=== PATIENT | female | born 1940 | race Caucasian/White ===

== ENCOUNTER 2016-10-29 08:56 | Outpatient (CLI) | payer MEDICARE, OTHER | END 2016-10-29 08:57 | disposition home or self-care (01) | DX: T14.90 Injury, unspecified (principal) ==

== ENCOUNTER 2017-09-10 10:42 | Outpatient (CLI) | payer MEDICARE, OTHER ==
[2017-09-10] MEDS ORDERED: IOPAMIDOL-300 50 ML VIAL ONE (10:56)
[2017-09-10] MEDS ORDERED: IOPAMIDOL-300 100 ML VIAL ONE (10:56)
[2017-09-10] MEDS ORDERED: IOPAMIDOL-300 50 ML VIAL PO ONE (12:10)
[2017-09-10] MEDS ORDERED: IOPAMIDOL-300 100 ML VIAL IVP ONE (12:10)
--- NOTE | 2017-09-10 13:03 | CT Report ---
CT OF ABDOMEN AND PELVIS WITH CONTRAST: 09/10/2017 CLINICAL INDICATION: Left lower quadrant pain. COMPARISON: 01/11/2014. TECHNIQUE: Axial CT images of the abdomen and pelvis were obtained with 100 mL Isovue 300 intravenously as well as oral contrast. FINDINGS: Limited evaluation of the lung bases is unremarkable. ABDOMEN: The liver demonstrates tiny cysts, stable. No solid hepatic lesion or intrahepatic biliary dilatation is appreciated. The spleen, pancreas, kidneys and adrenal glands are unremarkable. The gallbladder is not dilated. No bowel dilatation, free gas, or free fluid is present. No abdominal adenopathy is seen. PELVIS: Sigmoid diverticulosis is present, without CT evidence of diverticulitis. The patient is status post hysterectomy. No pelvic adenopathy or free fluid is present. Osseous structures demonstrate degenerative changes. IMPRESSION: POSTOPERATIVE CHANGES OF HYSTERECTOMY. NO EVIDENT ETIOLOGY FOR PATIENT'S PAIN. DIVERTICULOSIS, WITHOUT EVIDENCE OF DIVERTICULITIS. In accordance with CT protocol optimization, one or more of the following dose reduction techniques were utilized for this exam: automated exposure control, adjustment of mA and/or KV based on patient size, or use of iterative reconstructive technique. TD: 09/10/2017 13:02
== END 2017-09-10 10:43 | disposition home or self-care (01) ==
LOC: DI 10:42
PROVIDERS: ATTEND Family Medicine
DX: R10.32 Left lower quadrant pain (principal); K57.30 Diverticulosis of large intestine without perforation or abscess without bleeding; Z90.710 Acquired absence of both cervix and uterus
CPT/HCPCS: 74177; Q9967

== ENCOUNTER 2018-11-21 13:06 | Emergency (ER) | payer MEDICARE, OTHER ==
[2018-11-21 14:09] LABS: BASOPHILS % (AUTO) 0.6 %; EOSINOPHILS # (AUTO) 0.2 10^3/uL (0.0-0.7); EOSINOPHILS % (AUTO) 2.5 %; LYMPHOCYTES # (AUTO) 2.1 10^3/uL (1.5-3.5); LYMPHOCYTES % (AUTO) 30.3 %; MEAN CORPUSCULAR HEMOGLOBIN 30.5 pg (27.0-31.0); MEAN CORPUSCULAR HGB CONC 32.1 g/dL (32.0-36.0); MEAN CORPUSCULAR VOLUME 95.1 fL (81.0-99.0); MEAN PLATELET VOLUME 11.4 fL (7.9-10.8); MONOCYTES # (AUTO) 0.5 10^3/uL (0.0-1.0); MONOCYTES % (AUTO) 6.6 %; NEUTROPHILS # (AUTO) 4.1 10^3/uL (1.5-6.6); NEUTROPHILS % (AUTO) 59.6 %; PLT - PLATELET COUNT 183 10^3/uL (130-450); RED BLOOD COUNT 4.91 10^6/uL (4.20-5.40); RED CELL DISTRIBUTION WIDTH 13.2 % (12.0-15.0); WHITE BLOOD COUNT 6.9 x10^3/uL (4.8-10.8)
[2018-11-21 14:23] LABS: ALBUMIN 4.1 g/dL (3.2-5.5); ALBUMIN/GLOBULIN RATIO 1.4 (1.0-2.2); BILIRUBIN,TOTAL 0.7 mg/dL (0.2-1.0); CALCIUM 9.5 mg/dL (8.5-10.3); CREATININE 0.8 mg/dL (0.4-1.0); TOTAL PROTEIN 7.1 g/dL (6.7-8.2)
--- NOTE | 2018-11-21 14:55 | ED Physician Documentation ---
PD HPI ABD PAIN - Stated complaint Stated Complaint: ABD CRAMPS - Chief complaint Chief Complaint: Abd Pain - History obtained from History obtained from: Patient - History of Present Illness Timing - onset: Last night Timing - duration: Days (1/2) Timing - details: Gradual onset, Still present, Waxing and waning Quality: Cramping, Aching, Pain Location: Periumbilical, Other (lower abdomen) Improved by: BM (small one this morning). No: Eating Worsened by: No: Eating Associated symptoms: No: Fever, Nausea, Vomiting, Diarrhea, Melena Similar symptoms before: Diagnosis (IBS diagnosis. Diverticula on scope but no prior diverticulitis.) Recently seen: Not recently seen Review of Systems Constitutional: reports: Fatigue. denies: Fever, Chills, Myalgias Nose: denies: Rhinorrhea / runny nose, Congestion Throat: denies: Sore throat Cardiac: denies: Chest pain / pressure Respiratory: denies: Cough GI: reports: Abdominal Pain. 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 : None HEENT: None Psych: Anxiety Musculoskeletal: Osteoporosis Derm: None - Past Surgical History General: Appendectomy, Colonoscopy /DEPUTY CHIEF COUNSEL: Hysterectomy, Mastectomy HEENT: Rhinoplasty - Present Medications Home Medications: Ambulatory Orders Medication Instructions Recorded Confirmed Aspirin Chewable [[place] 81 mg PO DAILY 02/09/13 10/27/16 Aspirin] Atenolol [Tenormin] 25 mg PO QPM 02/09/13 10/27/16 Psyllium Seed (with Sugar) 1 each PO DAILY 02/09/13 10/27/16 [Metamucil Fiber Wafer] Anastrozole 1 mg PO DAILY 03/21/13 10/27/16 Metronidazole [[place]] 45 gm TP DAILY 07/04/13 10/27/16 Acyclovir [Zovirax] 400 mg PO BID 10/17/13 10/27/16 Hydrocodone/Acetaminophen [[place] 1 each PO Q6H PRN #15 tablet 11/21/18 5-325 Tablet] Naproxen 375 mg PO BID #20 tablet 11/21/18 - Allergies Allergies/Adverse Reactions: Allergies Allergy/AdvReac Type Severity Reaction Status Date / Time lactose Allergy gi distress Verified 11/21/18 13:15 - Social History Does the pt smoke?: No Smoking Status: Never smoker Does the pt drink ETOH?: No Does the pt have substance abuse?: No - POLST Patient has POLST: Yes POLST Status: Full Code PD ED PE NORMAL - Vitals Vital signs reviewed: Yes - General General: Alert and oriented X 3, Well developed/nourished - HEENT HEENT: Moist mucous membranes, Pharynx benign - Neck Neck: Supple, no meningeal sign, No adenopathy - Cardiac Cardiac: RRR, No murmur - Respiratory Respiratory: Clear bilaterally - Abdomen Abdomen: Soft, Non distended, No organomegaly, Other (Tenderness diffusely in the lower abdomen without any focal guarding or percussion tenderness.). No: Normal bowel sounds (increased) - Female Female : Deferred - Rectal Rectal: Deferred - Back Back: No CVA TTP - Derm Derm: Normal color, Warm and dry - Extremities Extremities: No tenderness to palpate, Normal ROM s pain, No edema, No calf tenderness / cord - Neuro Neuro: Alert and oriented X 3, No motor deficit, Normal speech Results - Vitals Vitals: Vital Signs - 24 hr 11/21/18 11/21/18 11/21/18 13:12 14:58 15:47 Temperature 36.7 C 36.4 C L Heart Rate 73 71 Respiratory 18 18 Rate Blood Pressure 191/81 H 173/85 H O2 Saturation 100 100 11/21/18 11/21/18 16:48 17:35 Temperature 36.6 C 36.6 C Heart Rate 75 80 Respiratory 18 18 Rate Blood Pressure 151/81 H 166/96 H O2 Saturation 100 100 Oxygen O2 Source Room air - Labs Labs: Laboratory Tests 11/21/18 11/21/18 11/21/18 13:27 14:04 14:04 WBC 6.9 RBC 4.91 Hgb 15.0 Hct 46.7 MCV 95.1 MCH 30.5 MCHC 32.1 RDW 13.2 Plt Count 183 MPV 11.4 H Neut # (Auto) 4.1 Lymph # (Auto) 2.1 [place] # (Auto) 0.5 Eos # (Auto) 0.2 Baso # (Auto) 0.0 Absolute Nucleated RBC 0.00 Nucleated RBC % 0.0 Sodium 141 Potassium 4.2 Chloride 108 Carbon Dioxide 21 Anion Gap 12.0 BUN 15 Creatinine 0.8 Estimated GFR (MDRD) 70 L Glucose 92 Calcium 9.5 Total Bilirubin 0.7 AST 32 ALT 31 Alkaline Phosphatase 74 Total Protein 7.1 Albumin 4.1 Globulin 3.0 Albumin/Globulin Ratio 1.4 Lipase 28 Urine Color YELLOW Urine Clarity CLEAR Urine pH 7.0 Ur Specific [place] <=1.005 Urine Protein NEGATIVE Urine Glucose (UA) NEGATIVE Urine Ketones NEGATIVE Urine Occult Blood TRACE-INTA Urine Nitrite NEGATIVE Urine Bilirubin NEGATIVE Urine Urobilinogen 0.2 (NORMAL) Ur Leukocyte Esterase NEGATIVE Ur Microscopic Review NOT INDICATED Urine Culture Comments NOT INDICATED - Rads (name of study) abd/pelvic CT Radiology: Prelim report reviewed (Diverticula present without any focal diverticulitis. No acute obvious cause of the pain. Appendix appears normal. Gallbladder is normal.), See rad report PD MEDICAL DECISION MAKING - ED course Complexity details: considered differential (The patient has a normal white count and is afebrile. Her basic chemistry labs are normal as well. Her CT scan does not show any acute process to explain the pain. She has diverticula but no signs of diverticulitis. She has a history of irritable bowel. Consider the possibility of inflammatory colitis or potential stool because. We can try some anti-inflammatories and stool softeners. She had had bowel movement yesterday so has not truly constipated per se. She is given pain medicine and and fluids here in the department with improvement in her pain. Recheck of the abdomen still shows no guarding or percussion tenderness.), d/w patient Departure - Departure Disposition: 01 Home, Self Care Clinical Impression: Lower abdominal pain Condition: Stable Record reviewed to determine appropriate education?: Yes Instructions: ED Abdominal Pain Unkn Cause Follow-Up: Nick Lockett MD [Primary Care Provider] - Prescriptions: Hydrocodone/Acetaminophen [[place] 5-325 Tablet] 1 each PO Q6H PRN #15 tablet PRN Reason: Pain Naproxen 375 mg PO BID #20 tablet Comments: Your CT scan does not show an obvious acute cause of the pain. Can presume it some inflammation through the colon or possibly some diverticula. No signs of infection based on the CT scan or your blood count. Try some anti-inflammatory of naproxen with food twice daily. Add pain medicine if needed. Continue your probiotics. Add a stool softener such as docusate or Dulcolax daily for the next 3 to 4 days. This is in case of some unevenness of the stool through the colon causing local stretching of the colon. Recheck if not improved over the next 1 to 2 days and return sooner if worsening despite above medication.
[2018-11-21 15:10] LABS: BILIRUBIN,URINE NEGATIVE (NEGATIVE); GLUCOSE, URINE (UA) NEGATIVE (NEGATIVE); KETONES,URINE (UA) NEGATIVE (NEGATIVE); LEUKOCYTE ESTERASE, URINE NEGATIVE (NEGATIVE); NITRITE,URINE NEGATIVE (NEGATIVE); OCCULT BLOOD,URINE TRACE-INTA (NEGATIVE); PROTEIN,URINE NEGATIVE (NEGATIVE); UROBILINOGEN,URINE 0.2 (NORMAL) E.U./dL (NORMAL)
[2018-11-21] MEDS ORDERED: SODIUM CHLORIDE 0.9% 1,000 ML IV ONE (15:17)
[2018-11-21] MEDS ORDERED: MORPHINE 2 MG/ML CARPUJECT IVP STA (15:17)
[2018-11-21 15:21] LABS: CLARITY,URINE CLEAR (CLEAR)
[2018-11-21] MEDS ORDERED: IOVERSOL 320 100 ML VIAL IVP ONE ×2 (15:31→15:42)
--- NOTE | 2018-11-21 16:14 | CT Report ---
Reason: lower abd pain since yesterday Procedure Date: 11/21/2018 Accession Number: [id number] / [id number] Procedure: CT - Abdomen/Pelvis W CPT Code: FULL RESULT: EXAM: CT ABDOMEN AND PELVIS EXAM DATE: 11/21/2018 03:40 PM. CLINICAL HISTORY: Lower abd pain since yesterday. COMPARISONS: ABDOMEN/PELVIS W/ 09/10/2017 11:59 AM. TECHNIQUE: Routine helical CT imaging was performed through the abdomen and pelvis. IV contrast: 90 cc Optiray 320. Enteric contrast: No. Reconstructions: Coronal and sagittal. In accordance with CT protocol optimization, one or more of the following dose reduction techniques were utilized for this exam: automated exposure control, adjustment of mA and/or KV based on patient size, or use of iterative reconstructive technique. FINDINGS: Lung Bases: Unremarkable. Liver: Tiny cysts or hemangiomata. Otherwise unremarkable. Gallbladder/Bile Ducts: Unremarkable. Spleen: Normal. Pancreas: Normal. Adrenal Glands: Normal. Kidneys: Tiny cortical cyst. Retroaortic left renal vein, normal variant. Otherwise unremarkable. No stone or hydronephrosis. Peritoneal Cavity/Bowel: Moderate colonic diverticulosis. Nonspecific small bowel gas. No bowel dilation. No free fluid, free air or adenopathy. No masses or acute inflammatory process. The appendix is well visualized and normal. Pelvic Organs: Unremarkable urinary bladder. Absent uterus. Vasculature: No aneurysms or other significant abnormality. Bones: No significant abnormality. Other: None. IMPRESSION: 1. Moderate diverticulosis, but no definite diverticulitis at this time. 2. Nonspecific small bowel gas. No definite acute disease. RADIA
[2018-11-21] MEDS ORDERED: HYDROmorphone 1 MG/ML CARPUJECT IVP STA (16:51)
[2018-11-21] MEDS ORDERED: KETOROLAC 15 MG/ML VIAL IVP STA (16:51)
[2018-11-21] MEDS ORDERED: DOCUSATE SODIUM 100 MG CAPSULE PO STA (16:52)
[2018-11-21] MEDS ORDERED: DEXAMETHASONE 10 MG/ML VIAL PO STA (17:17)
[2018-11-21] MEDS ORDERED: CHERRY SYRUP 10 ML UDC PO ONE (17:17)
[2018-11-21 17:37] VITALS: BP 166/96
== END 2018-11-21 17:42 | disposition home or self-care (01) ==
LOC: ED 13:06
DX: R10.30 Lower abdominal pain, unspecified (principal); I10 Essential (primary) hypertension
CPT/HCPCS: 36415; 74177; 80053; 81003; 83690; 85025; 96361; 96374; 96375; 99283; A9270; Q9967; 81001; 87086

== ENCOUNTER 2019-07-14 07:00 | Outpatient (CLI) | payer MEDICARE, OTHER | END 2019-07-14 23:59 | disposition home or self-care (01) | LOC: LAB.R 07:00 | PROVIDERS: ATTEND Family Medicine | DX: R19.7 Diarrhea, unspecified (principal) | CPT/HCPCS: 81599; 87045; 87046; 87177; 87209; 87329; 87493 ==

== ENCOUNTER 2020-08-16 12:42 | Outpatient (CLI) | payer MEDICARE, OTHER ==
--- NOTE | 2020-08-16 16:24 | DEXA Report ---
PROCEDURE: Dexa Spine and/or Hip INDICATIONS: POST MENOPAUSAL TECHNIQUE: Dual energy x-ray absorptiometry (DXA) was performed on a [employer] System. Regions measur ed are the AP Spine, femoral neck, and if needed forearm. COMPARISON: DEXA 10/06/2016 FINDINGS: Lumbar Spine: Bone Mineral Density 1.235 g/cm/cm,T score 0.5, compared to 0.8 Left Hip: Bone Mineral Density 0.650 g/cm/cm,T score -2.8, compared to -2.4 Left Femoral Neck: Bone Mineral Density 0.617 g/cm/cm, T score -3.0, compared to -2.2 (T score greater or equal to -1.0: NORMAL) (T score from -1.1 to -2.4: OSTEOPENIA) (T score less than or equal to -2.5 to: OSTEOPOROSIS) Impression: Progression of osteopenia within the left hip as well as progression to osteoporosis in t he left femoral neck. Patients with diagnosis of osteoporosis or osteopenia should have regular bone mineral density assess ment. For those eligible for Medicare, routine testing is allowed once every 2 years. Testing frequ ency can be increased for patients who have rapidly progressing disease or for those who are receivin g medical therapy to restore bone mass. Reviewed by: Marce Jose MD on 08/16/2020 4:23 PM PDT Approved by: Marce Jose MD on 08/16/2020 4:23 PM PDT Station ID: [id number]
== END 2020-08-16 12:43 | disposition home or self-care (01) ==
LOC: DI 12:42
PROVIDERS: ATTEND Internal Medicine Hematology & Oncology
DX: M81.0 Age-related osteoporosis without current pathological fracture (principal); Z78.0 Asymptomatic menopausal state

== ENCOUNTER 2021-09-09 08:00 | Outpatient (CLI) | payer MEDICARE, OTHER ==
--- NOTE | 2021-09-09 17:21 | XRAY Report ---
PROCEDURE: Knee 2 View RT INDICATIONS: R KNEE PX TECHNIQUE: 2 views of the right knee(s) were acquired. COMPARISON: None. FINDINGS: Bones: No fractures or dislocations. No suspicious bony lesions. Chondrocalcinosis. Mild medial co mpartment joint space loss. Soft tissues: Small joint effusion. No suspicious soft tissue calcifications. IMPRESSION: Mild CPPD arthropathy. No evidence acute bony abnormality of the right knee. If clinical suspicion and/or symptoms persist, further assessment with repeat plain films or advanced imaging (e.g., CT, MRI, or bone scan) may be helpful for further assessment. Reviewed by: John Martinez MD on 09/09/2021 5:20 PM PDT Approved by: John Martinez MD on 09/09/2021 5:20 PM PDT Station ID: [id number]
== END 2021-09-09 23:59 | disposition home or self-care (01) ==
LOC: DI.N 08:00
PROVIDERS: ATTEND Nurse Practitioner
DX: M11.861 Other specified crystal arthropathies, right knee (principal)

== ENCOUNTER 2022-01-26 10:38 | Outpatient (CLI) | payer MEDICARE, OTHER ==
[2022-01-26 18:01] LABS: HCT - HEMATOCRIT 45.8 % (37.0-47.0); MEAN CORPUSCULAR HEMOGLOBIN 31.3 pg (27.0-31.0); MEAN CORPUSCULAR HGB CONC 32.8 g/dL (32.0-36.0); MEAN CORPUSCULAR VOLUME 95.6 fL (81.0-99.0); MEAN PLATELET VOLUME 12.3 fL (7.9-10.8); NEUTROPHILS # (AUTO) 4.3 10^3/uL (1.5-6.6); NEUTROPHILS % (AUTO) 64.3 %; RED BLOOD COUNT 4.79 10^6/uL (4.20-5.40); RED CELL DISTRIBUTION WIDTH 13.2 % (12.0-15.0); WHITE BLOOD COUNT 6.7 x10^3/uL (4.8-10.8)
[2022-01-26 18:12] LABS: ALBUMIN 4.3 g/dL (3.2-5.5); ALBUMIN/GLOBULIN RATIO 1.4 (1.0-2.2); BILIRUBIN,TOTAL 0.6 mg/dL (0.2-1.0); CALCIUM 9.8 mg/dL (8.5-10.3); CREATININE 0.8 mg/dL (0.4-1.0); POTASSIUM 4.3 mmol/L (3.5-5.0); TOTAL PROTEIN 7.3 g/dL (6.7-8.2)
== END 2022-01-26 10:39 | disposition home or self-care (01) ==
LOC: LAB.N 10:38
PROVIDERS: ATTEND Nurse Practitioner Family
DX: Z08 Encounter for follow-up examination after completed treatment for malignant neoplasm (principal); Z85.3 Personal history of malignant neoplasm of breast
CPT/HCPCS: 36415; 80053; 85027; 86300

== ENCOUNTER 2022-01-29 17:29 | Outpatient (CLI) | payer MEDICARE, OTHER ==
[2022-01-29 20:34] LABS: BILIRUBIN,URINE NEGATIVE (NEGATIVE); GLUCOSE, URINE (UA) NEGATIVE (NEGATIVE); KETONES,URINE (UA) NEGATIVE (NEGATIVE); LEUKOCYTE ESTERASE, URINE NEGATIVE (NEGATIVE); NITRITE,URINE NEGATIVE (NEGATIVE); OCCULT BLOOD,URINE TRACE-INTA (NEGATIVE); PROTEIN,URINE NEGATIVE (NEGATIVE); UROBILINOGEN,URINE 0.2 (NORMAL) E.U./dL (NORMAL)
[2022-01-29 20:44] LABS: CLARITY,URINE CLEAR (CLEAR)
[2022-01-29 20:46] LABS: BASOPHILS % (AUTO) 0.5 %; EOSINOPHILS # (AUTO) 0.2 10^3/uL (0.0-0.7); EOSINOPHILS % (AUTO) 2.9 %; HGB - HEMOGLOBIN 15.6 g/dL (12.0-16.0); LYMPHOCYTES # (AUTO) 2.1 10^3/uL (1.5-3.5); LYMPHOCYTES % (AUTO) 26.6 %; MEAN CORPUSCULAR HGB CONC 33.9 g/dL (32.0-36.0); MEAN CORPUSCULAR VOLUME 94.5 fL (81.0-99.0); MEAN PLATELET VOLUME 11.9 fL (7.9-10.8); MONOCYTES # (AUTO) 0.6 10^3/uL (0.0-1.0); MONOCYTES % (AUTO) 6.9 %; NEUTROPHILS % (AUTO) 62.8 %; PLT - PLATELET COUNT 194 10^3/uL (130-450); RED BLOOD COUNT 4.87 10^6/uL (4.20-5.40); RED CELL DISTRIBUTION WIDTH 12.9 % (12.0-15.0); WHITE BLOOD COUNT 7.9 x10^3/uL (4.8-10.8)
[2022-01-29 20:50] LABS: BACTERIA,URINE Few /HPF (None Seen); CRYSTALS,URINE 3-5 Calcium Oxalate /LPF; RBC,URINE 0-5 /HPF (0-5); SQUAMOUS EPITHELIAL CELL,UR RARE Squamous (<= Few); WBC,URINE 0-3 /HPF (0-5)
[2022-01-29 21:10] LABS: ALBUMIN 4.4 g/dL (3.2-5.5); ALBUMIN/GLOBULIN RATIO 1.6 (1.0-2.2); BILIRUBIN,TOTAL 0.8 mg/dL (0.2-1.0); CALCIUM 10.1 mg/dL (8.5-10.3); CREATININE 0.8 mg/dL (0.4-1.0); POTASSIUM 4.4 mmol/L (3.5-5.0); TOTAL PROTEIN 7.2 g/dL (6.7-8.2)
== END 2022-01-29 17:30 | disposition home or self-care (01) ==
LOC: LAB.N 17:29
PROVIDERS: ATTEND Nurse Practitioner
DX: R10.9 Unspecified abdominal pain (principal)
CPT/HCPCS: 36415; 80053; 81001; 82150; 83690; 85025; 87086

== ENCOUNTER 2023-05-06 07:00 | Outpatient (CLI) | payer MEDICARE, OTHER ==
[2023-05-06 08:52] LABS: CHOL/HDL RATIO 2.9 (<4.4); CHOLESTEROL 171 mg/dL; HDL CHOLESTEROL 58 mg/dL; LDL CHOLESTEROL,CALCULATED 90 mg/dL; LDL/HDL RATIO 1.6 (<4.4); TRIGLYCERIDES 116 mg/dL (48-352); VLDL CHOLESTEROL 23 mg/dL
--- NOTE | 2023-05-06 17:39 | Ultrasound Report ---
PROCEDURE: Carotid Doppler Complete INDICATIONS: CAROTID BRUIT TECHNIQUE: Duplex carotid ultrasound was obtained and medical billing representative images were recorded with veloc ity measurements. Any estimate of stenosis was obtained with reference to standards endorsed by the [employer] COMPARISON: None. FINDINGS: Right side: Brachial blood pressure: 135/68 mm Hg. Common carotid artery peak systolic velocity: 71 cm/sec. Internal carotid artery peak systolic velocity: 21 cm/sec. Internal carotid artery end diastolic velocity: 32 cm/sec. External carotid artery peak systolic velocity: 84 cm/sec. ICA/CCA peak systolic ratio: 1.7 . Ramirez scale imaging description: Mild atherosclerotic plaque Percent internal carotid artery stenosis: Less than 50. Vertebral artery: Flow direction is antegrade. Left side: Brachial blood pressure: 127/50 mm Hg. Common carotid artery peak systolic velocity: 90 cm/sec. Internal carotid artery peak systolic velocity: 190 cm/sec. Internal carotid artery end diastolic velocity: 29 cm/sec. External carotid artery peak systolic velocity: 74 cm/sec. ICA/CCA peak systolic ratio: 2.1 . Ramirez scale imaging description: Atherosclerotic plaque Percent internal carotid artery stenosis: Approximately 50. Vertebral artery: Flow direction is antegrade. IMPRESSION: 1. Atherosclerotic plaque results in 50-69% stenosis on the left and less than 50% stenosis on the ri ght proximal ICA Reviewed by: Aldo Foreman MD on 05/06/2023 4:38 PM AKST Approved by: Aldo Foreman MD on 05/06/2023 4:38 PM AKST Station ID: [id number]
== END 2023-05-06 07:01 | disposition home or self-care (01) ==
LOC: DI 07:00
PROVIDERS: ATTEND Nurse Practitioner Family
DX: R09.89 Other specified symptoms and signs involving the circulatory and respiratory systems (principal); R42 Dizziness and giddiness; Z13.220 Encounter for screening for lipoid disorders; I65.23 Occlusion and stenosis of bilateral carotid arteries
CPT/HCPCS: 36415; 80061; 83721; 93880

== ENCOUNTER 2023-06-01 09:09 | Outpatient (CLI) | payer MEDICARE, OTHER ==
[2023-06-01 09:33] LABS: CREATININE 0.9 mg/dL (0.6-1.3)
--- NOTE | 2023-06-01 19:01 | CT Report ---
PROCEDURE: Angio Neck INDICATIONS: CAROTID ARTERY STENOSIS CONTRAST: 80ml omni 300 TECHNIQUE: After the administration of intravenous contrast, 1.5 mm axial sections acquired from the aortic arch to the [place]. Coronal 3-D maximum intensity projection (MIP) and/or volume rendering ref ormats were then performed. For radiation dose reduction, the following was used: automated exposur e control, adjustment of mA and/or kV according to patient size. COMPARISON: Duplex carotid ultrasound dated 05/06/2023. FINDINGS: Image quality: Excellent. Carotid system: The great vessels demonstrate a normal variant four-vessel arch anatomy as they ema e from the aortic arch. The origins of the common carotid arteries appear patent. The common caroti d arteries demonstrate normal calibers and courses. The bifurcation regions appear normal bilaterall y. The previous estimation of left internal carotid artery stenosis is felt to represent an overestim ate secondary to vessel tortuosity. The left internal carotid artery is widely patent at the origin, with tortuosity and luminal irregularity likely resulting in the velocity increase, as opposed to a f ocal significant stenosis. There is very mild proximal right internal artery stenosis. Posterior circulation: The origins of the vertebral arteries appear patent. The more superior porti ons of the vertebral arteries demonstrate normal course and caliber. They join to form a normal appe aring basilar artery. Soft tissues: Visualized neck soft tissues demonstrate no suspicious abnormalities. The thyroid is normal in size and there are no incidental findings. Bones: No suspicious bony lesions. Visualized cervical spine appears normally aligned. IMPRESSION: 1. The bilateral internal carotid arteries are only mildly diseased, less than 50%. The velocity incr ease in the proximal left internal carotid artery is felt to be secondary to tortuosity and luminal i rregularity, not hemodynamically significant stenosis. 2. Normal variant four-vessel arch anatomy. 3. Vertebral arteries are widely patent. The estimate of stenosis included in the report of the imaging study was calculated using the NASCET method CLINICAL RECOMMENDATION STATEMENTS: In patients <35 years with an ITN detected on CT, MRI, or extrathyroidal ultrasound, the Committee re commends further evaluation with dedicated thyroid ultrasound if the nodule is "e1 cm and has no susp icious imaging features, and if the patient has normal life expectancy. In patients "e35 years with an ITN detected on CT, MRI, or extrathyroidal ultrasound, the Committee r ecommends further evaluation with dedicated thyroid ultrasound if the nodule is "e1.5 cm and has no s uspicious imaging features, and if the patient has normal life expectancy. (ACR, 2014) Reviewed by: John Martinez MD on 06/01/2023 7:00 PM PST Approved by: John Martinez MD on 06/01/2023 7:00 PM PST Station ID: [id number]
== END 2023-06-01 09:10 | disposition home or self-care (01) ==
LOC: LAB 09:09
PROVIDERS: ATTEND Nurse Practitioner Family
DX: I65.29 Occlusion and stenosis of unspecified carotid artery (principal); R09.89 Other specified symptoms and signs involving the circulatory and respiratory systems; R42 Dizziness and giddiness
CPT/HCPCS: 36415; 82565

== ENCOUNTER 2023-07-31 23:00 | Outpatient (CLI) | payer MEDICARE, OTHER | END 2023-07-31 23:59 | disposition critical access hospital (66) | LOC: EMS 23:00 | DX: R10.32 Left lower quadrant pain (principal) | CPT/HCPCS: A0425; A0427 ==

== ENCOUNTER 2023-07-31 23:32 | Emergency (ER) | payer MEDICARE, OTHER ==
--- NOTE | 2023-07-31 23:46 | ED Physician Documentation ---
PD HPI ABD PAIN - Stated complaint Stated Complaint: LLQ ABD PAIN - History obtained from History obtained from: Patient - Additional information Additional information: Patient is an 82-year-old female presenting for evaluation of left lower quadrant abdominal pain this been ongoing since this afternoon but worse this evening around 10:00. Patient describes the pain as sharp. Nothing makes it better or worse. She did have a bowel movement this evening. Has had a prior hysterectomy. Denies history of small bowel obstructions. No associated nausea or vomiting. Denies dysuria. No blood in stools or urine. Denies fever, chest pain, shortness of air. EMS administered 50 mcg of fentanyl with improvement in her symptoms. Review of Systems Constitutional: denies: Fever Cardiac: denies: Chest pain / pressure Respiratory: denies: Dyspnea GI: reports: Abdominal Pain. 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 HEENT: None Psych: Anxiety Musculoskeletal: Osteoporosis Derm: None - Past Surgical History Past Surgical History: No General: Appendectomy, Colonoscopy /CLEARING SUPERVISOR: Hysterectomy, Mastectomy HEENT: Rhinoplasty - Present Medications Home Medications: Ambulatory Orders Medication Instructions Recorded Confirmed atenoloL [Tenormin] 25 mg PO QPM 02/09/13 07/31/23 Nortriptyline [Pamelor] 10 mg PO DAILY 09/29/22 07/31/23 - Allergies Allergies/Adverse Reactions: Allergies Allergy/AdvReac Type Severity Reaction Status Date / Time lactose Allergy gi distress Verified 07/23/20 15:48 - Social History Does the pt smoke?: No Smoking Status: Never smoker Does the pt drink ETOH?: No Does the pt have substance abuse?: No - Immunizations Immunizations are current?: Yes - POLST Patient has POLST: Yes POLST Status: Full Code PD ED PE NORMAL - General General: Alert and oriented X 3, No acute distress, Well developed/nourished - HEENT HEENT: Atraumatic, Moist mucous membranes, Pharynx benign - Neck Neck: Supple, no meningeal sign - Cardiac Cardiac: RRR, Strong equal pulses - Respiratory Respiratory: No respiratory distress, Clear bilaterally - Abdomen Abdomen: Normal bowel sounds, Soft, Non distended, Other (Bilateral lower quadrant tenderness, left greater than right, no palpable mass or hernia) - Derm Derm: Warm and dry - Neuro Neuro: Normal speech Results - Vitals Vitals: Vital Signs - 24 hr 07/31/23 07/31/23 08/01/23 23:39 23:43 01:24 Temperature 36.5 C Heart Rate 74 84 78 Respiratory 20 18 18 Rate Blood Pressure 183/91 H 164/75 H 170/80 H O2 Saturation 100 98 100 08/01/23 02:53 Temperature Heart Rate 72 Respiratory 18 Rate Blood Pressure 164/76 H O2 Saturation 99 Oxygen O2 Source Room air - Labs Labs: Laboratory Tests 07/31/23 07/31/23 08/01/23 23:55 23:55 00:33 WBC 8.6 RBC 4.87 Hgb 15.1 Hct 46.8 MCV 96.1 MCH 31.0 MCHC 32.3 RDW 13.0 Plt Count 188 MPV 11.2 H Neut # (Auto) 6.3 Lymph # (Auto) 1.5 [place] # (Auto) 0.5 Eos # (Auto) 0.2 Baso # (Auto) 0.0 Absolute Nucleated RBC 0.00 Nucleated RBC % 0.0 Sodium 139 Potassium 4.1 Chloride 105 Carbon Dioxide 25 Anion Gap 9.0 BUN 21 H Creatinine 1.0 Estimated GFR (MDRD) 53 L Glucose 100 Calcium 10.5 H Total Bilirubin 0.5 AST 20 ALT 16 Alkaline Phosphatase 80 Total Protein 6.8 Albumin 4.0 Globulin 2.8 Albumin/Globulin Ratio 1.4 Lipase 17 Urine Color YELLOW Urine Clarity CLOUDY Urine pH 8.5 H Ur Specific [place] 1.015 Urine Protein 100 H Urine Glucose (UA) NEGATIVE Urine Ketones NEGATIVE Urine Occult Blood LARGE H Urine Nitrite NEGATIVE Urine Bilirubin NEGATIVE Urine Urobilinogen 1 (NORMAL) Ur Leukocyte Esterase NEGATIVE Urine RBC 11-25 H Urine WBC 4-5 Ur Squamous Epith Cells RARE Squamous Amorphous Sediment Few Urine Bacteria Rare Urine Mucus Few Strands Ur Microscopic Review INDICATED Urine Culture Comments NOT INDICATED PD Medical Decision Making - ED course Complexity details: reviewed results, re-evaluated patient, d/w patient ED course: Patient is an 82-year-old female presenting for evaluation of left lower quadrant pain that has been present to this evening. No nausea or vomiting. Has had a bowel movement this evening. Denies history of SBO's. Mild lower abdominal tenderness. No blood in stools per patient. Vital signs are stable. Labs reviewed including CBC, chemistries and urine analysis. Patient does report noticing blood in her urine intermittently for the past 1 week. Denies any flank pain. Does not take a blood thinner. CT scan was obtained and reviewed and shows findings of possible colitis. She did have a few bowel movements here but none was collected for stool sample. She is feeling better here however. Diarrhea has stopped. She is comfortable with plan for discharge. Understands need for close follow-up for her symptoms today as well as for the blood in her urine. Counseled on concerning symptoms to return for. 0240 - Feeling better. Repeat abdominal exam is benign. Departure - Departure Disposition: 01 Home, Self Care Clinical Impression: Lower abdominal pain, Hematuria, Diarrhea Condition: Stable Instructions: ED Abdominal Pain Female Non-Specific Abdominal Pain, ED Diet Vomiting Diarrhea Comments: Your lab testing is reassuring with no signs of any issues with your electrolytes and your white count. Your urine does show a small amount of blood in it and I would recommend close follow-up with your primary care provider regarding this as you may need a referral to urology. Your CT scan shows diarrhea as well as some inflammation of the colon suggestive of colitis. Please start with a bland diet. Return to the emergency department with any recurrence or worsening symptoms. Forms: PCP List Discharge Date/Time: 08/01/23 03:10
[2023-08-01 00:13] LABS: BASOPHILS % (AUTO) 0.5 %; EOSINOPHILS # (AUTO) 0.2 10^3/uL (0.0-0.7); EOSINOPHILS % (AUTO) 2.6 %; HCT - HEMATOCRIT 46.8 % (37.0-47.0); HGB - HEMOGLOBIN 15.1 g/dL (12.0-16.0); LYMPHOCYTES # (AUTO) 1.5 10^3/uL (1.5-3.5); LYMPHOCYTES % (AUTO) 17.7 %; MEAN CORPUSCULAR HGB CONC 32.3 g/dL (32.0-36.0); MEAN CORPUSCULAR VOLUME 96.1 fL (81.0-99.0); MEAN PLATELET VOLUME 11.2 fL (7.9-10.8); MONOCYTES # (AUTO) 0.5 10^3/uL (0.0-1.0); MONOCYTES % (AUTO) 5.2 %; NEUTROPHILS # (AUTO) 6.3 10^3/uL (1.5-6.6); NEUTROPHILS % (AUTO) 73.8 %; PLT - PLATELET COUNT 188 10^3/uL (130-450); RED BLOOD COUNT 4.87 10^6/uL (4.20-5.40); WHITE BLOOD COUNT 8.6 x10^3/uL (4.8-10.8)
[2023-08-01 00:21] LABS: ALBUMIN/GLOBULIN RATIO 1.4 (1.0-2.2); BILIRUBIN,TOTAL 0.5 mg/dL (0.2-1.0); CALCIUM 10.5 mg/dL (8.5-10.3); POTASSIUM 4.1 mmol/L (3.5-4.5); TOTAL PROTEIN 6.8 g/dL (6.4-8.9)
[2023-08-01] MEDS ORDERED: IOVERSOL 320 100 ML VIAL IVP ONE (00:25)
[2023-08-01 00:42] LABS: BILIRUBIN,URINE NEGATIVE (NEGATIVE); CLARITY,URINE CLOUDY (CLEAR); GLUCOSE, URINE (UA) NEGATIVE (NEGATIVE); KETONES,URINE (UA) NEGATIVE (NEGATIVE); LEUKOCYTE ESTERASE, URINE NEGATIVE (NEGATIVE); NITRITE,URINE NEGATIVE (NEGATIVE); OCCULT BLOOD,URINE LARGE (NEGATIVE); PH,URINE 8.5 PH (5.0-7.5); PROTEIN,URINE 100 mg/dL (NEGATIVE); UROBILINOGEN,URINE 1 (NORMAL) E.U./dL (NORMAL)
[2023-08-01 00:50] LABS: AMORPHOUS SEDIMENT,UR Few /LPF; BACTERIA,URINE Rare /HPF (None Seen); MUCUS,URINE Few Strands; SQUAMOUS EPITHELIAL CELL,UR RARE Squamous (<= Few)
[2023-08-01] MEDS: IOVERSOL 320 100 ML VIAL IVP ONE (01:07)
[2023-08-01] MEDS: SODIUM CHLORIDE 0.9% 500 ML IV STA (01:15)
--- NOTE | 2023-08-01 01:25 | CT Report ---
PROCEDURE: Abdomen/Pelvis W INDICATIONS: LLQ pain CONTRAST: 100 ML OPTI 320 TECHNIQUE: After the administration of intravenous contrast, a CT scan of the abdomen and pelvis was performed. Images were recorded and evaluated at appropriate window settings. Reformats: coronal and sagittal. F or radiation dose reduction, the following was used: automated exposure control, adjustment of mA and /or kV according to patient size. COMPARISON: 11/21/2018 FINDINGS: Image quality: Diagnostic. Lower chest: Unremarkable. Liver: No solid mass. Gallbladder and biliary tree: Within normal limits. Spleen: No splenomegaly. Pancreas: No pancreatic ductal dilation. Adrenals: No adrenal nodule. Kidneys and ureters: No hydronephrosis. No renal cystic lesion which requires follow up. No solid mas s. Stomach, bowel and peritoneum: In this patient with this given history, scrutiny is given to sigmoid colon. Moderate diverticula formation can be seen within this region. There is liquid stool seen with in the colon, including distally. There is moderate generalized wall thickening seen involving the di stal colon, beginning near the level of the distal transverse colon. The more proximal colon is withi n normal limits. No dilated loops of small bowel are seen. The stomach demonstrates no significant abnormality. Lymph nodes: No central or retroperitoneal adenopathy. Vessels: No infrarenal aortic aneurysm. PELVIS Reproductive organs: This patient is status post hysterectomy. No adnexal masses can be seen. Bladder: No abnormal wall thickening, accounting for underdistention. Pelvic lymph nodes: No pelvic adenopathy by size criteria. Bones: No aggressive osseous abnormality. Mild dextroconvex scoliotic curvature is seen. Focal lower lumbar spine degenerative changes are seen. Milder degenerative changes are seen elsewhere. Other: No significant ventral or inguinal hernia. IMPRESSION: Moderate wall thickening can be seen throughout the distal colon and please could relate with potenti al infectious and inflammatory causes of colitis. Distal colonic diverticulosis is seen, without randa diverticulitis. Liquid stool can be seen throughout the colon, which is consistent with diarrhea. Additional findings: Dextroconvex scoliotic curvature Focal lower lumbar spine degenerative change Hysterectomy Reviewed by: Jeet Koo MD on 08/01/2023 12:23 AM [facility] Approved by: Jeet Koo MD on 08/01/2023 12:23 AM [facility] Station ID: [id number]
[2023-08-01] MEDS: MORPHINE 2 MG/ML CARPUJECT IVP STA (02:40)
[2023-08-01] MEDS: ONDANSETRON 4 MG/2 ML VIAL IVP STA (02:40)
[2023-08-01 03:03] VITALS: BP 164/76; O2SAT 99
== END 2023-08-01 03:10 | disposition home or self-care (01) ==
LOC: EDUNIT# → ED 23:32
DX: R10.32 Left lower quadrant pain (principal); R19.7 Diarrhea, unspecified; R31.9 Hematuria, unspecified
CPT/HCPCS: 36415; 74177; 80053; 81001; 83690; 85025; 99283; 99284; Q9967; 81003; 87086

== ENCOUNTER 2023-08-25 08:00 | Outpatient (CLI) | payer MEDICARE, OTHER ==
[2023-08-25 18:02] LABS: BILIRUBIN,URINE NEGATIVE (NEGATIVE); GLUCOSE, URINE (UA) NEGATIVE (NEGATIVE); KETONES,URINE (UA) NEGATIVE (NEGATIVE); LEUKOCYTE ESTERASE, URINE TRACE (NEGATIVE); NITRITE,URINE NEGATIVE (NEGATIVE); OCCULT BLOOD,URINE LARGE (NEGATIVE); PROTEIN,URINE 30 mg/dL (NEGATIVE); UROBILINOGEN,URINE 0.2 (NORMAL) E.U./dL (NORMAL)
[2023-08-25 18:04] LABS: CLARITY,URINE HAZY (CLEAR)
[2023-08-25 18:45] LABS: BACTERIA,URINE Rare /HPF (None Seen); RBC,URINE TNTC /HPF (0-5); SQUAMOUS EPITHELIAL CELL,UR RARE Squamous (<= Few); WBC,URINE >25 /HPF (0-5)
[2023-08-25 18:45] LABS: FECAL OCCULT BLOOD (FIT) POSITIVE (NEGATIVE)
[2023-08-25 18:46] LABS: CRYSTALS,URINE 6-10 Calcium Oxalate /LPF
== END 2023-08-25 23:59 | disposition home or self-care (01) ==
LOC: LAB.N 08:00
PROVIDERS: ATTEND Nurse Practitioner Family
DX: R31.9 Hematuria, unspecified (principal); Z87.19 Personal history of other diseases of the digestive system
CPT/HCPCS: 81001; 81003; 82274; 87086

== ENCOUNTER 2023-09-22 08:00 | Outpatient (CLI) | payer MEDICARE, OTHER ==
[2023-09-22 11:54] LABS: BILIRUBIN,URINE NEGATIVE (NEGATIVE); GLUCOSE, URINE (UA) NEGATIVE (NEGATIVE); KETONES,URINE (UA) NEGATIVE (NEGATIVE); LEUKOCYTE ESTERASE, URINE TRACE (NEGATIVE); NITRITE,URINE NEGATIVE (NEGATIVE); OCCULT BLOOD,URINE LARGE (NEGATIVE); PH,URINE 7.5 PH (5.0-7.5); PROTEIN,URINE 100 mg/dL (NEGATIVE); UROBILINOGEN,URINE 0.2 (NORMAL) E.U./dL (NORMAL)
[2023-09-22 12:03] LABS: CLARITY,URINE HAZY (CLEAR); RBC,URINE TNTC /HPF (0-5)
[2023-09-22 12:04] LABS: BACTERIA,URINE Rare /HPF (None Seen); SQUAMOUS EPITHELIAL CELL,UR NONE SEEN (<= Few)
== END 2023-09-22 23:59 | disposition home or self-care (01) ==
LOC: LAB.WCP 08:00
PROVIDERS: ATTEND Nurse Practitioner Family
DX: R31.9 Hematuria, unspecified (principal)
CPT/HCPCS: 81001; 87086

== ENCOUNTER 2023-09-27 08:00 | Outpatient (CLI) | payer MEDICARE, OTHER ==
[2023-09-27 09:12] LABS: FECAL OCCULT BLOOD (FIT) POSITIVE (NEGATIVE)
== END 2023-09-27 23:59 | disposition home or self-care (01) ==
LOC: LAB.WCP 08:00
PROVIDERS: ATTEND Nurse Practitioner Family
DX: R31.9 Hematuria, unspecified (principal); Z87.19 Personal history of other diseases of the digestive system
CPT/HCPCS: 82274

== ENCOUNTER 2023-10-20 08:00 | Outpatient (CLI) | payer MEDICARE, OTHER | END 2023-10-20 23:59 | disposition home or self-care (01) | LOC: LAB.WCP 08:00 | PROVIDERS: ATTEND Urology | DX: R31.9 Hematuria, unspecified (principal) | CPT/HCPCS: 87086 ==

== ENCOUNTER 2023-11-09 13:48 | Outpatient (CLI) | payer MEDICARE, OTHER ==
[2023-11-09 14:29] LABS: CREATININE 0.9 mg/dL (0.6-1.3)
[2023-11-09] MEDS: iohexoL-300 150 ML BOTTLE IVP ONE (15:09)
--- NOTE | 2023-11-09 15:36 | CT Report ---
PROCEDURE: IVP INDICATIONS: HEMATURIA CONTRAST: 140ml omni TECHNIQUE: A [address] of the abdomen and pelvis was performed. Non-contrast and contrast images were recorded and evaluated at appropriate window settings. Images were recorded and evaluated at appropriate windo w settings. Reformats: coronal and sagittal. For radiation dose reduction, the following was used: au tomated exposure control, adjustment of mA and/or kV according to patient size. COMPARISON: CT 10/01/2023 FINDINGS: Image quality: Diagnostic. Lower chest: Unremarkable. Liver: Subcentimter hypoattenuating liver lesions, too small to characterize by CT. Gallbladder: No radiopaque stones or wall thickening. Biliary tree: No intrahepatic or extrahepatic dilation, accounting for age. Spleen: No splenomegaly. Pancreas: No pancreatic ductal dilation. Adrenals: No adrenal nodule. Kidneys and ureters: Both kidneys are normal in size. 1.2 x 0.8 cm right renal stone within the renal pelvis (1198 dL). Additional punctate nonobstructing nephrolithiasis in the inferior pole of the rig ht kidney. No solid masses or complex cysts which require follow up. The opacified renal calyces and ureters appear normal, without filling defect. Stomach, bowel and peritoneum: No bowel distension. No pathologic free fluid. Diverticulosis without evidence of diverticulitis. Abdominal Lymph nodes: No central or retroperitoneal adenopathy. Vessels: Unremarkable. Patent portal vein. Reproductive organs: Hysterectomy. Bladder: No abnormal wall thickening, accounting for underdistention. No calcified bladder stones. No filling defect within the opacified bladder. Pelvic Lymph nodes: Unremarkable. Bones: No aggressive osseous abnormality. Degenerative changes, predominantly of the lumbar spine. Mi ld convex right scoliosis centered at L2. Other: None. IMPRESSION: Right-sided nonobstructing stones, largest measuring 1.2 x 0.8 cm in the right renal pelvis. No hydro nephrosis. Bladder is incompletely distended with contrast. Colonic diverticulosis without evidence of diverticulitis. Reviewed by: Schuyler Doan MD on 11/09/2023 3:35 PM PDT Approved by: Schuyler Doan MD on 11/09/2023 3:35 PM PDT Station ID: [id number]
== END 2023-11-09 13:49 | disposition home or self-care (01) ==
LOC: LAB 13:48
PROVIDERS: ATTEND Urology
DX: R31.9 Hematuria, unspecified (principal); N20.0 Calculus of kidney; K57.30 Diverticulosis of large intestine without perforation or abscess without bleeding
CPT/HCPCS: 36415; 82565